=== PATIENT | female | born 1955 | race African-American/Black ===

== ENCOUNTER 2021-08-10 08:36 | Emergency (ER) | payer MEDICAID ==
[~2021-08-10] VITALS: Ht 152.4 cm; Wt 84.0 kg
[2021-08-10] MEDS ORDERED: LABETALOL 5MG/ML SYR 20 MG/4 ML SYRINGE IV ONE (09:00)
[2021-08-10] MEDS ORDERED: LABETALOL 5MG/ML SYR 20 MG/4 ML SYRINGE IV NR (09:15)
[2021-08-10] MEDS ORDERED: ENALAPRIL 2.5MG/2ML VIAL 2ML IV ONE (09:15)
[2021-08-10] MEDS ORDERED: ENALAPRIL 1.25MG/ML VIAL 1ML IV ONE (09:30)
[2021-08-10 10:25] LABS: EOSINOPHILS % 3.3 % (0.0-5.0); HEMATOCRIT. 43.7 % (36.0-48.0); HEMOGLOBIN. 14.9 g/dL (12.0-16.0); MEAN CORPUSCULAR HEMOGLOBIN 28.4 pg (28.0-32.0); MEAN CORPUSCULAR VOLUME 83.1 fL (81.0-99.0); MEAN PLATELET VOLUME 8.7 fl (7.4-10.4); MONOCYTES % 7.3 % (2.0-8.0); NEUTROPHILS % 51.4 % (40.0-76.0); PLATELET 306 x1000/uL (130-400); RED BLOOD CELL COUNT 5.26 mill/uL (4.2-5.4); RED CELL DISTRIBUTION WIDTH 13.8 % (11.6-14.6)
[2021-08-10 10:28] LABS: CHLORIDE 101 mEq/L (98-107)
[2021-08-10 10:32] LABS: PROTHROMBIN TIME 10.3 sec (9.6-11.0)
[2021-08-10] MEDS ORDERED: HYDRALAZINE 20MG/ML VIAL IV ONE (13:30)
[2021-08-10] MEDS ORDERED: HYDRALAZINE 20MG/ML VIAL IV SCH (13:45)
[2021-08-10 13:56] VITALS: BP 176/77
== END 2021-08-10 14:19 ==
LOC: ER 08:36 → CANBEDREQ 23:01
DX: I16.0 Hypertensive urgency (principal); E11.9 Type 2 diabetes mellitus without complications; I49.9 Cardiac arrhythmia, unspecified
CPT/HCPCS: 36415; 70450; 71045; 80053; 82962; 83690; 83880; 84484; 85025; 85610; 93005; 96374; 96375; 99291; J0360; J3490

== ENCOUNTER 2024-06-28 08:23 | Inpatient (IN) | payer MEDICAID, MEDICARE ==
[~2024-06-28] VITALS: Ht 160 cm; Wt 74.1 kg
[~2024-06-28 08:23] MED LIST: AMLO10TA4 PO; CLOT15CR27 TP; HYDR-2988 PO; IBUP-2030 PO; ISOS30TA91 PO; LIP40 PO; LISI40TA13 PO; METO-396 PO; cyclobenzaprine PO
[2024-06-28 09:26] LABS: HEMATOCRIT. 24.7 % (36.0-48.0); HEMOGLOBIN. 7.6 g/dL (12.0-16.0); MEAN CORPUSCULAR HEMOGLOBIN 25.8 pg (28.0-32.0); MEAN CORPUSCULAR HGB CONC 30.9 g/dL (31.0-37.0); MEAN CORPUSCULAR VOLUME 83.5 fL (81.0-99.0); PLATELET 398 x1000/uL (130-400); RED BLOOD CELL COUNT 2.96 mill/uL (4.2-5.4); RED CELL DISTRIBUTION WIDTH 14.6 % (11.6-14.6); WHITE BLOOD COUNT 30.9 x1000/uL (4.5-11.0)
[2024-06-28 09:28] LABS: CHLORIDE 96 mEq/L (98-107); POTASSIUM 4.7 mEq/L (3.5-5.1); SODIUM 127 mEq/L (136-145)
[2024-06-28 09:29] LABS: CALCIUM 8.2 mg/dL (8.7-10.4); CARBON DIOXIDE 12 mEq/L (21-32)
[2024-06-28 09:34] LABS: DIFFERENTIAL COMMENT 1; GLUCOSE 363 mg/dL (70-105); TROPONIN I HIGH SENSITIVITY 9 ng/L (3.0-34); UREA NITROGEN BLOOD 34 mg/dL (9-23)
[2024-06-28] MEDS: AZITHROMYCIN 500MG/250ML 250 ML IV ONE (10:00)
[2024-06-28] MEDS ORDERED: VANCOMYCIN 1G PREMIX 200 ML IV ONE (10:00)
[2024-06-28 10:02] LABS: CREATININE 1.7 mg/dL (0.6-1.0)
[2024-06-28] MEDS: SODIUM CHLORIDE 0.9% (SEPSIS BOLUS) IV ONE (10:29)
[2024-06-28] MEDS: VANCOMYCIN 1,000 MG in SODIUM CHLORIDE 0.9% 250 ML IV NR (11:00)
[2024-06-28 11:02] LABS: PLATELET ESTIMATE NORMAL
[2024-06-28 11:21] LABS: INR 1.3; PROTHROMBIN TIME 14.4 sec (9.6-11.0)
[2024-06-28 11:22] LABS: ALANINE AMINOTRANSFERASE 47 IU/L (10-49); ALBUMIN 2.7 g/dL (3.2-4.8); ASPARTATE AMINOTRANSFERASE 50 IU/L (<34); BILIRUBIN DIRECT 0.4 mg/dL (<=3.0); PROTEIN TOTAL 5.4 g/dL (6.0-8.3)
[2024-06-28 11:32] LABS: LACTIC ACID 10.9 mmol/L (0.4-2.0)
[2024-06-28 14:49] VITALS: BP 150/63; PULSE 107; RESP 18; TEMP 37.00296; O2SAT 98
[2024-06-28] MEDS ORDERED: RIVA20TA MT (15:02)
[2024-06-28] MEDS ORDERED: EMPA25TA MT (15:02)
[2024-06-28 15:45] VITALS: BP 150/63; PULSE 107; RESP 18; TEMP 37.0296
[2024-06-28 16:00] VITALS: BP 123/53; PULSE 110; RESP 18; TEMP 36.114; O2SAT 96
[2024-06-28] MEDS ORDERED: *PATIENT'S OWN MEDICATION STORAGE XX SCH (16:15)
[2024-06-28] MEDS ORDERED: DEXTROSE 50% WATER 50ML SYRINGE IV PRN (16:30)
[2024-06-28] MEDS: BLOOD SUGAR DIAGNOSTIC STRIP TEST SCH (17:34)
[2024-06-28] MEDS: SODIUM CHLORIDE 0.9% 1,000 ML IV SCH (17:36)
[2024-06-28] MEDS: INSULIN LISPRO 100 UNITS/ML SUBCUT SCH (17:40)
[2024-06-28] MEDS ORDERED: CEFTRIAXONE 2GM/50ML 50 ML IV SCH (19:30)
[2024-06-28] MEDS: AZITHROMYCIN 500MG/250ML 250 ML IV SCH (19:30)
[2024-06-28 20:00] VITALS: BP 128/53; PULSE 112; RESP 18; TEMP 36.55848; O2SAT 98
[2024-06-28] MEDS ORDERED: CEFEPIME 2GM IN DEXT 5% 100ML IV SCH (20:00)
[2024-06-28 20:40] LABS: CLARITY URINE CLOUDY (CLEAR); COLOR URINE DARK YELLOW (YELLOW); GLUCOSE URINE 3+ (NEGATIVE); KETONES URINE NEGATIVE (NEGATIVE); LEUKOCYTE ESTERASE URINE 1+ (NEGATIVE); NITRITE URINE NEGATIVE (NEGATIVE); OCCULT BLOOD URINE TRACE (NEGATIVE); PH URINE 5.5 (4.5-8.0); PROTEIN URINE 1+ (NEGATIVE); SPECIFIC GRAVITY URINE 1.019 (1.005-1.030)
[2024-06-28 21:01] LABS: BACTERIA URINE TRACE; COARSE GRANULAR CASTS URINE 0-5 /lpf; RBC URINE 0-2 /hpf (0-2); SQUAMOUS EPITHELIAL CELL URINE FEW /lpf (RARE/1+)
[2024-06-28 22:43] LABS: LACTIC ACID 3.4 mmol/L (0.4-2.0)
[2024-06-29] VITALS (10 sets, daily range): BP systolic 120–151; BP diastolic 50–72; PULSE 74–117; RESP 18–20; TEMP 36.114–39; O2SAT 96–99
[2024-06-29] MEDS ORDERED: PIPERACILLIN/TAZO 3.375G/100ML 100 ML IV SCH (02:00)
[2024-06-29] MEDS: CEFEPIME 2GM/50ML DUPLEX 50 ML IV SCH ×2 (02:51→22:50)
[2024-06-29] MEDS: AZITHROMYCIN 500MG in NS 250ML IV SCH (03:30)
[2024-06-29 07:55] LABS: MEAN CORPUSCULAR HEMOGLOBIN 26.2 pg (28.0-32.0); MEAN CORPUSCULAR HGB CONC 32.5 g/dL (31.0-37.0); MEAN CORPUSCULAR VOLUME 80.6 fL (81.0-99.0); MEAN PLATELET VOLUME 8.3 fl (7.4-10.4); PLATELET 314 x1000/uL (130-400); RED BLOOD CELL COUNT 2.27 mill/uL (4.2-5.4); RED CELL DISTRIBUTION WIDTH 14.3 % (11.6-14.6); WHITE BLOOD COUNT 18.9 x1000/uL (4.5-11.0)
[2024-06-29 09:00] LABS: DIFFERENTIAL COMMENT 1
[2024-06-29 09:02] LABS: HEMOGLOBIN. 5.9 g/dL (12.0-16.0)
[2024-06-29 09:03] LABS: HEMATOCRIT. 18.3 % (36.0-48.0)
[2024-06-29] MEDS: ACETAMINOPHEN 325MG TABLET PO PRN (10:13)
[2024-06-29] MEDS: VANCOMYCIN 750MG PMX (XELLIA) 150 ML IV SCH (11:25)
[2024-06-29] MEDS ORDERED: DIATR MEGLU/DIATRIZOATE SOLN 30ML PO NR (17:15)
[2024-06-29] MEDS ORDERED: CEFEPIME 2GM/50ML DUPLEX 50 ML IV SCH (18:00)
[2024-06-29] MEDS: SODIUM CHLORIDE 0.9% 1,000 ML IV SCH (19:00)
[2024-06-29 19:07] LABS: CHLORIDE 102 mEq/L (98-107); POTASSIUM 3.9 mEq/L (3.5-5.1); SODIUM 130 mEq/L (136-145)
[2024-06-29 19:08] LABS: CARBON DIOXIDE 19 mEq/L (21-32)
[2024-06-29 19:09] LABS: CALCIUM 7.8 mg/dL (8.7-10.4)
[2024-06-29 19:13] LABS: CREATININE 0.9 mg/dL (0.6-1.0); GLUCOSE 212 mg/dL (70-105); UREA NITROGEN BLOOD 22 mg/dL (9-23)
[2024-06-29 20:10] LABS: HYPOCHROMASIA 3+; MICROCYTOSIS 2+; PLATELET ESTIMATE NORMAL
[2024-06-30] VITALS (11 sets, daily range): BP systolic 123–160; BP diastolic 47–72; PULSE 94–108; RESP 18–20; TEMP 36.7–38.7; O2SAT 96–98
[2024-06-30] MEDS: HYDROCODONE/ACETAMINOPHEN 10/325MG TABLET PO PRN (02:29)
[2024-06-30 06:45] LABS: INR 1.1; PROTHROMBIN TIME 11.9 sec (9.6-11.0)
[2024-06-30 06:52] LABS: FOLIC ACID (FOLATE) SERUM 6.22 ng/mL (>5.38)
[2024-06-30 06:53] LABS: FERRITIN 1575 ng/mL (10-291)
[2024-06-30 06:55] LABS: VITAMIN B12 SERUM 295 pg/mL (211-911)
[2024-06-30 07:01] LABS: CARBON DIOXIDE 19 mEq/L (21-32); CHLORIDE 104 mEq/L (98-107); SODIUM 132 mEq/L (136-145)
[2024-06-30 07:02] LABS: CALCIUM 7.7 mg/dL (8.7-10.4)
[2024-06-30 07:04] LABS: HEPATITIS B SURFACE ANTIGEN NEGATIVE (Negative)
[2024-06-30 07:06] LABS: CREATININE 0.7 mg/dL (0.6-1.0); IRON 19 ug/dL (50-170)
[2024-06-30 07:07] LABS: GLUCOSE 167 mg/dL (70-105); TOTAL IRON BINDING CAPACITY 301 ug/dl (250-425); UREA NITROGEN BLOOD 18 mg/dL (9-23)
[2024-06-30 07:08] LABS: ALANINE AMINOTRANSFERASE 40 IU/L (10-49); ALBUMIN 2.6 g/dL (3.2-4.8); PROTEIN TOTAL 5.3 g/dL (6.0-8.3)
[2024-06-30 07:09] LABS: ASPARTATE AMINOTRANSFERASE 59 IU/L (<34); BILIRUBIN DIRECT 0.5 mg/dL (<=3.0); BILIRUBIN TOTAL 1.2 mg/dL (0.1-1.0)
[2024-06-30 07:17] LABS: MEAN CORPUSCULAR HEMOGLOBIN 27.2 pg (28.0-32.0); MEAN CORPUSCULAR HGB CONC 33.8 g/dL (31.0-37.0); MEAN CORPUSCULAR VOLUME 80.6 fL (81.0-99.0); PLATELET 278 x1000/uL (130-400); RED BLOOD CELL COUNT 2.48 mill/uL (4.2-5.4); RED CELL DISTRIBUTION WIDTH 14.6 % (11.6-14.6); WHITE BLOOD COUNT 20.2 x1000/uL (4.5-11.0)
[2024-06-30 07:26] LABS: HEPATITIS A AB IGM NEGATIVE (Negative); HEPATITIS B CORE AB IGM NEGATIVE (Negative)
[2024-06-30 07:27] LABS: HEPATITIS C AB NON REACTIVE (Neg) (Negative)
[2024-06-30 07:52] LABS: DIFFERENTIAL COMMENT 1; HEMOGLOBIN. 6.7 g/dL (12.0-16.0)
[2024-06-30] MEDS ORDERED: VANCOMYCIN 1.25GM PMX (XELLIA) 250 ML IV SCH (10:00)
[2024-06-30] MEDS: VANCOMYCIN 1G PREMIX 200 ML IV SCH (10:00)
[2024-06-30 19:51] LABS: INR 1.1
[2024-06-30 19:53] LABS: HEMATOCRIT. 24.5 % (36.0-48.0); HEMOGLOBIN. 8.4 g/dL (12.0-16.0); MEAN CORPUSCULAR HEMOGLOBIN 27.8 pg (28.0-32.0); MEAN CORPUSCULAR HGB CONC 34.2 g/dL (31.0-37.0); MEAN CORPUSCULAR VOLUME 81.3 fL (81.0-99.0); MEAN PLATELET VOLUME 7.6 fl (7.4-10.4); PLATELET 236 x1000/uL (130-400); RED BLOOD CELL COUNT 3.02 mill/uL (4.2-5.4); RED CELL DISTRIBUTION WIDTH 14.6 % (11.6-14.6); WHITE BLOOD COUNT 26.5 x1000/uL (4.5-11.0)
[2024-06-30 19:54] LABS: DIFFERENTIAL COMMENT 1
[2024-06-30 21:16] LABS: PLATELET ESTIMATE NORMAL
[2024-06-30] MEDS: INSULIN LISPRO 100 UNITS/ML SUBCUT SCH (21:26)
[2024-06-30 23:04] LABS: PLATELET ESTIMATE NORMAL
[2024-07-01] VITALS (7 sets, daily range): BP systolic 133–168; BP diastolic 47–69; PULSE 66–103; RESP 18–20; TEMP 36.3–38.2; O2SAT 97–99
[2024-07-01] MEDS: MEROPENEM 1G/100ML 100 ML IV SCH (01:04)
[2024-07-01 07:31] LABS: HEMATOCRIT. 23.9 % (36.0-48.0); MEAN CORPUSCULAR HEMOGLOBIN 27.3 pg (28.0-32.0); MEAN CORPUSCULAR HGB CONC 33.5 g/dL (31.0-37.0); MEAN CORPUSCULAR VOLUME 81.4 fL (81.0-99.0); PLATELET 220 x1000/uL (130-400); RED BLOOD CELL COUNT 2.94 mill/uL (4.2-5.4); RED CELL DISTRIBUTION WIDTH 14.4 % (11.6-14.6); WHITE BLOOD COUNT 27.9 x1000/uL (4.5-11.0)
[2024-07-01 07:38] LABS: CALCIUM 7.4 mg/dL (8.7-10.4); CHLORIDE 100 mEq/L (98-107); POTASSIUM 3.9 mEq/L (3.5-5.1); SODIUM 130 mEq/L (136-145)
[2024-07-01 07:39] LABS: CARBON DIOXIDE 21 mEq/L (21-32)
[2024-07-01 07:44] LABS: CREATININE 0.6 mg/dL (0.6-1.0)
[2024-07-01 07:45] LABS: GLUCOSE 150 mg/dL (70-105); UREA NITROGEN BLOOD 12 mg/dL (9-23)
[2024-07-01 07:53] LABS: DIFFERENTIAL COMMENT 1
[2024-07-01] MEDS ORDERED: NALOXONE HCL 0.4MG/ML VIAL IV PRN (14:30)
[2024-07-01] MEDS: MEROPENEM 1GM/50ML DUPLEX 50 ML IV SCH (14:47)
[2024-07-01 21:02] LABS: PLATELET ESTIMATE NORMAL
[2024-07-02] VITALS: BP 195/76; PULSE 108; RESP 18; TEMP 36.4; O2SAT 97
[2024-07-02] MEDS: CLONIDINE 0.2MG TABLET PO PRN (02:48)
[2024-07-02] MEDS: AZITHROMYCIN 500MG/250ML 250 ML IV SCH (03:32)
[2024-07-02 04:00] VITALS: BP 160/71; PULSE 103; RESP 17; TEMP 36.1; O2SAT 100
[2024-07-02 06:24] LABS: CHLORIDE 100 mEq/L (98-107); POTASSIUM 4.1 mEq/L (3.5-5.1); SODIUM 128 mEq/L (136-145)
[2024-07-02 06:25] LABS: CALCIUM 7.3 mg/dL (8.7-10.4); CARBON DIOXIDE 20 mEq/L (21-32)
[2024-07-02 06:30] LABS: CREATININE 0.7 mg/dL (0.6-1.0); GLUCOSE 243 mg/dL (70-105); UREA NITROGEN BLOOD 17 mg/dL (9-23)
[2024-07-02 06:34] LABS: HEMATOCRIT. 22.2 % (36.0-48.0); HEMOGLOBIN. 7.7 g/dL (12.0-16.0); MEAN CORPUSCULAR HEMOGLOBIN 28.5 pg (28.0-32.0); MEAN CORPUSCULAR HGB CONC 34.4 g/dL (31.0-37.0); MEAN CORPUSCULAR VOLUME 82.8 fL (81.0-99.0); MEAN PLATELET VOLUME 7.6 fl (7.4-10.4); PLATELET 206 x1000/uL (130-400); RED BLOOD CELL COUNT 2.69 mill/uL (4.2-5.4); WHITE BLOOD COUNT 32.6 x1000/uL (4.5-11.0)
[2024-07-02 06:37] LABS: DIFFERENTIAL COMMENT 1
[2024-07-02 06:38] LABS: INR 1.1; PROTHROMBIN TIME 12.3 sec (9.6-11.0)
[2024-07-02 08:00] VITALS: BP 138/60; PULSE 94; RESP 20; TEMP 36.4; O2SAT 98
[2024-07-02] MEDS: DOCUSATE SODIUM 100MG CAPSULE PO SCH (09:00)
[2024-07-02] MEDS ORDERED: ONDANSETRON HCL 4MG/2ML INJ IV PRN (10:00)
[2024-07-02] MEDS ORDERED: HYDROMORPHONE HCL/PF 2MG/ML INJ IV PRN (10:00)
[2024-07-02] MEDS ORDERED: PHENYLEPHRINE HCL 10MG/ML 1ML IV ONE (10:52)
[2024-07-02] MEDS ORDERED: EPHEDRINE SULFATE 50MG/ML VIAL ONE (10:52)
[2024-07-02] MEDS ORDERED: PROPOFOL 200MG/20ML VIAL IV ONE (10:53)
[2024-07-02 12:24] VITALS: BP 125/87; PULSE 87; RESP 15; TEMP 38.4; O2SAT 97
[2024-07-02] MEDS: DIATR MEGLU/DIATRIZOATE SOLN 30ML PO NR (13:23)
[2024-07-02 16:00] VITALS: BP 110/54; PULSE 86; RESP 15; TEMP 37.4; O2SAT 98
[2024-07-02] MEDS: IOHEXOL-350 100 ML BOTTLE ONE (17:24)
[2024-07-02 20:00] VITALS: BP 147/58; PULSE 95; RESP 17; TEMP 36.4; O2SAT 96
[2024-07-02] MEDS ORDERED: IOHEXOL-300 100 ML BOTTLE ONE (21:44)
[2024-07-02] MEDS: SENNOSIDES 8.6MG TABLET PO SCH (21:47)
[2024-07-03] VITALS: BP 145/59; PULSE 96; RESP 18; TEMP 36.4; O2SAT 97
[2024-07-03 04:00] VITALS: BP 151/62; PULSE 100; RESP 17; TEMP 36.3; O2SAT 96
[2024-07-03 08:00] VITALS: BP 161/70; PULSE 101; RESP 20; TEMP 38.6; O2SAT 96
[2024-07-03 09:17] LABS: HEMATOCRIT. 22.1 % (36.0-48.0); HEMOGLOBIN. 7.3 g/dL (12.0-16.0); MEAN CORPUSCULAR HEMOGLOBIN 27.6 pg (28.0-32.0); MEAN CORPUSCULAR HGB CONC 32.9 g/dL (31.0-37.0); MEAN CORPUSCULAR VOLUME 84.1 fL (81.0-99.0); MEAN PLATELET VOLUME 7.5 fl (7.4-10.4); PLATELET 340 x1000/uL (130-400); RED BLOOD CELL COUNT 2.63 mill/uL (4.2-5.4); RED CELL DISTRIBUTION WIDTH 15.8 % (11.6-14.6); WHITE BLOOD COUNT 34.1 x1000/uL (4.5-11.0)
[2024-07-03 09:21] LABS: CARBON DIOXIDE 24 mEq/L (21-32); CHLORIDE 102 mEq/L (98-107); POTASSIUM 4.3 mEq/L (3.5-5.1); SODIUM 133 mEq/L (136-145)
[2024-07-03 09:23] LABS: CALCIUM 7.5 mg/dL (8.7-10.4)
[2024-07-03 09:27] LABS: CREATININE 0.6 mg/dL (0.6-1.0); GLUCOSE 112 mg/dL (70-105); UREA NITROGEN BLOOD 18 mg/dL (9-23)
[2024-07-03 11:08] LABS: DIFFERENTIAL COMMENT 1
[2024-07-03 12:00] VITALS: BP 161/62; PULSE 97; RESP 22; TEMP 38.4; O2SAT 99
[2024-07-03 16:00] VITALS: BP 156/61; PULSE 107; TEMP 39.1
[2024-07-03 17:14] LABS: ANISOCYTOSIS 1+; HYPOCHROMASIA 1+; PLATELET ESTIMATE NORMAL
[2024-07-03 20:00] VITALS: BP 119/51; PULSE 86; RESP 17; TEMP 36.1; O2SAT 92
[2024-07-04] VITALS (7 sets, daily range): BP systolic 129–187; BP diastolic 61–76; PULSE 86–98; RESP 15–20; TEMP 36.2–38.892; O2SAT 95–98
[2024-07-04 09:24] LABS: CHLORIDE 103 mEq/L (98-107); POTASSIUM 3.6 mEq/L (3.5-5.1); SODIUM 134 mEq/L (136-145)
[2024-07-04 09:25] LABS: CALCIUM 7.1 mg/dL (8.7-10.4); CARBON DIOXIDE 20 mEq/L (21-32)
[2024-07-04 09:30] LABS: CREATININE 0.5 mg/dL (0.6-1.0); GLUCOSE 129 mg/dL (70-105); UREA NITROGEN BLOOD 18 mg/dL (9-23)
[2024-07-04 09:47] LABS: MEAN CORPUSCULAR HEMOGLOBIN 26.9 pg (28.0-32.0); MEAN CORPUSCULAR HGB CONC 32.2 g/dL (31.0-37.0); MEAN CORPUSCULAR VOLUME 83.5 fL (81.0-99.0); MEAN PLATELET VOLUME 7.5 fl (7.4-10.4); PLATELET 378 x1000/uL (130-400); RED BLOOD CELL COUNT 2.48 mill/uL (4.2-5.4); RED CELL DISTRIBUTION WIDTH 15.5 % (11.6-14.6); WHITE BLOOD COUNT 31.1 x1000/uL (4.5-11.0)
[2024-07-04 10:05] LABS: DIFFERENTIAL COMMENT 1
[2024-07-04 10:08] LABS: HEMATOCRIT. 20.7 % (36.0-48.0); HEMOGLOBIN. 6.7 g/dL (12.0-16.0)
[2024-07-04] MEDS: CYANOCOBALAMIN 1000MCG/ML VIAL IM SCH (11:37)
[2024-07-04] MEDS: FERROUS SULFATE 325MG TABLET PO SCH (13:26)
[2024-07-04 16:08] LABS: ANISOCYTOSIS 1+; PLATELET ESTIMATE NORMAL
[2024-07-04 16:09] LABS: HYPOCHROMASIA 1+; MICROCYTOSIS 1+
[2024-07-04 19:49] LABS: ANISOCYTOSIS 1+; HYPOCHROMASIA 1+; PLATELET ESTIMATE NORMAL
[2024-07-05] VITALS (10 sets, daily range): BP systolic 123–197; BP diastolic 61–84; PULSE 75–91; RESP 18–20; TEMP 36.2–38.44752; O2SAT 96–99
[2024-07-05 05:18] LABS: CHLORIDE 101 mEq/L (98-107); SODIUM 130 mEq/L (136-145)
[2024-07-05 05:19] LABS: CARBON DIOXIDE 24 mEq/L (21-32)
[2024-07-05 05:20] LABS: CALCIUM 7.5 mg/dL (8.7-10.4)
[2024-07-05 05:24] LABS: CREATININE 0.6 mg/dL (0.6-1.0); GLUCOSE 173 mg/dL (70-105)
[2024-07-05 05:25] LABS: UREA NITROGEN BLOOD 18 mg/dL (9-23)
[2024-07-05 05:28] LABS: HEMATOCRIT. 26.3 % (36.0-48.0); HEMOGLOBIN. 8.7 g/dL (12.0-16.0); MEAN CORPUSCULAR HEMOGLOBIN 27.5 pg (28.0-32.0); MEAN CORPUSCULAR VOLUME 83.4 fL (81.0-99.0); PLATELET 476 x1000/uL (130-400); RED BLOOD CELL COUNT 3.15 mill/uL (4.2-5.4); RED CELL DISTRIBUTION WIDTH 15.1 % (11.6-14.6)
[2024-07-05 05:35] LABS: DIFFERENTIAL COMMENT 1
[2024-07-05 06:11] LABS: PROTHROMBIN TIME 11.4 sec (9.6-11.0)
[2024-07-05] MEDS ORDERED: IOHEXOL-350 100 ML BOTTLE ONE ×2 (17:17→23:22)
[2024-07-05] MEDS: CEFTRIAXONE 2GM/50ML 50 ML IV SCH (17:40)
[2024-07-05] MEDS: ONDANSETRON HCL 4MG/2ML INJ IV PRN (21:02)
[2024-07-05] MEDS: HYDROCODONE/ACETAMINOPHEN 10/325MG TABLET PO PRN (22:19)
[2024-07-05 22:53] LABS: PLATELET ESTIMATE INCREASED
[2024-07-06] VITALS: BP 162/78; PULSE 77; RESP 19; TEMP 36.1; O2SAT 97
[2024-07-06 04:00] VITALS: BP 145/63; PULSE 89; RESP 19; TEMP 36.4; O2SAT 98
[2024-07-06] MEDS ORDERED: LIDOCAINE HCL 1% 10 MG/ML 10ML VIAL ONE ×3 (07:48→14:03)
[2024-07-06] MEDS ORDERED: LIDOCAINE HCL 1% 20ML VIAL ONE (09:12)
[2024-07-06] MEDS ORDERED: HEPARIN 1000 UNITS/ML 10ML ONE (09:12)
[2024-07-06] MEDS ORDERED: IODIXANOL 320MG/ML 100 ML BOTTLE IV ONE (09:12)
[2024-07-06] MEDS ORDERED: MIDAZOLAM HCL 2 MG/2 ML VIAL ONE ×3 (09:41→11:22)
[2024-07-06] MEDS ORDERED: FENTANYL CITRATE/PF 50MCG/ML 2ML VIAL ONE ×3 (09:42→11:15)
[2024-07-06] MEDS ORDERED: HYDRALAZINE 20MG/ML VIAL ONE (10:29)
[2024-07-06] MEDS ORDERED: LABETALOL 5MG/ML 20ML VIAL IV ONE (10:42)
[2024-07-06] MEDS ORDERED: POLYMYXIN B SULFATE 500000 UNITS/VIAL ONE (10:46)
[2024-07-06] MEDS ORDERED: BUPIVACAINE HCL/PF 0.5% (5MG/ML) 10ML ONE (10:47)
[2024-07-06] MEDS ORDERED: BACITRACIN 14GM TUBE TOP ONE (10:47)
[2024-07-06] MEDS ORDERED: THROMBIN (BOVINE) 5000 UNITS/VIAL TOP ONE (10:47)
[2024-07-06] MEDS ORDERED: HEPARIN SODIUM 1,000 UNIT/1ML VIAL IV ONE (10:47)
[2024-07-06] MEDS ORDERED: ETOMIDATE 2MG/ML 10ML VIAL IV ONE (11:15)
[2024-07-06 11:37] VITALS: BP 148/65; PULSE 89; RESP 20; TEMP 36.4; O2SAT 99
[2024-07-06] MEDS ORDERED: ONDANSETRON HCL 4MG/2ML INJ IV PRN ×2 (12:00→12:15)
[2024-07-06] MEDS ORDERED: MEPERIDINE HCL/PF 25MG/ML CPJ IV PRN ×2 (12:00→12:15)
[2024-07-06] MEDS ORDERED: LABETALOL 5MG/ML 4ML INJ IV PRN ×2 (12:00→12:15)
[2024-07-06] MEDS ORDERED: HYDROMORPHONE HCL/PF 2MG/ML INJ IV PRN (12:15)
[2024-07-06] MEDS: HYDROMORPHONE HCL/PF 1MG/ML INJ IV PRN (13:01)
[2024-07-06 16:00] VITALS: BP 169/69; PULSE 99; RESP 18; TEMP 36.4; O2SAT 96
[2024-07-06 18:59] VITALS: BP 169/69; PULSE 99; RESP 18; TEMP 36.4; O2SAT 96
[2024-07-06 20:00] VITALS: BP 155/61; PULSE 99; RESP 18; TEMP 36.6; O2SAT 99
[2024-07-07] VITALS (9 sets, daily range): BP systolic 115–160; BP diastolic 32–69; PULSE 79–94; RESP 17–20; TEMP 36.2–37.39188; O2SAT 96–100
[2024-07-07 06:58] LABS: MEAN CORPUSCULAR HGB CONC 33.5 g/dL (31.0-37.0); MEAN CORPUSCULAR VOLUME 83.6 fL (81.0-99.0); MEAN PLATELET VOLUME 6.8 fl (7.4-10.4); PLATELET 501 x1000/uL (130-400); RED BLOOD CELL COUNT 2.36 mill/uL (4.2-5.4); RED CELL DISTRIBUTION WIDTH 15.3 % (11.6-14.6); WHITE BLOOD COUNT 24.1 x1000/uL (4.5-11.0)
[2024-07-07 07:05] LABS: CALCIUM 7.1 mg/dL (8.7-10.4); CHLORIDE 103 mEq/L (98-107); POTASSIUM 3.9 mEq/L (3.5-5.1); SODIUM 131 mEq/L (136-145)
[2024-07-07 07:06] LABS: CARBON DIOXIDE 21 mEq/L (21-32)
[2024-07-07 07:11] LABS: CREATININE 0.5 mg/dL (0.6-1.0); GLUCOSE 161 mg/dL (70-105); UREA NITROGEN BLOOD 19 mg/dL (9-23)
[2024-07-07 07:33] LABS: DIFFERENTIAL COMMENT 1
[2024-07-07 07:37] LABS: HEMOGLOBIN. 6.6 g/dL (12.0-16.0)
[2024-07-07 07:38] LABS: HEMATOCRIT. 19.7 % (36.0-48.0)
[2024-07-07 17:20] LABS: PLATELET ESTIMATE NORMAL
[2024-07-07 21:57] LABS: HEMATOCRIT 24.2 % (36.0-48.0)
[2024-07-08] VITALS: BP 178/71; PULSE 88; RESP 19; TEMP 36.7; O2SAT 96
[2024-07-08 04:00] VITALS: BP 183/77; PULSE 88; RESP 18; TEMP 36.1; O2SAT 96
[2024-07-08 06:29] LABS: HEMATOCRIT. 23.8 % (36.0-48.0); HEMOGLOBIN. 8.1 g/dL (12.0-16.0); MEAN CORPUSCULAR HEMOGLOBIN 28.6 pg (28.0-32.0); MEAN CORPUSCULAR VOLUME 84.1 fL (81.0-99.0); MEAN PLATELET VOLUME 7.1 fl (7.4-10.4); PLATELET 560 x1000/uL (130-400); RED BLOOD CELL COUNT 2.83 mill/uL (4.2-5.4); RED CELL DISTRIBUTION WIDTH 15.6 % (11.6-14.6); WHITE BLOOD COUNT 23.8 x1000/uL (4.5-11.0)
[2024-07-08 06:56] LABS: CARBON DIOXIDE 22 mEq/L (21-32); CHLORIDE 101 mEq/L (98-107); DIFFERENTIAL COMMENT 1; POTASSIUM 3.9 mEq/L (3.5-5.1); SODIUM 130 mEq/L (136-145)
[2024-07-08 06:58] LABS: CALCIUM 7.3 mg/dL (8.7-10.4)
[2024-07-08 07:02] LABS: CREATININE 0.4 mg/dL (0.6-1.0); GLUCOSE 121 mg/dL (70-105)
[2024-07-08 07:03] LABS: UREA NITROGEN BLOOD 14 mg/dL (9-23)
[2024-07-08 08:00] VITALS: BP 169/71; PULSE 80; RESP 18; TEMP 37.4; O2SAT 97
[2024-07-08 12:10] VITALS: BP 182/76; PULSE 94; RESP 18; TEMP 37.4; O2SAT 97
[2024-07-08 16:00] VITALS: BP 129/75; PULSE 85; RESP 18; TEMP 37.3; O2SAT 97
[2024-07-08 18:40] LABS: PLATELET ESTIMATE INCREASED
[2024-07-08 20:00] VITALS: BP 189/58; PULSE 90; RESP 19; TEMP 36.7; O2SAT 96
[2024-07-09] VITALS: BP 179/59; PULSE 80; RESP 19; TEMP 36.7; O2SAT 97
[2024-07-09 02:00] VITALS: BP 169/70; PULSE 89; RESP 19; TEMP 37.2; O2SAT 98
[2024-07-09 06:51] LABS: CARBON DIOXIDE 23 mEq/L (21-32); CHLORIDE 102 mEq/L (98-107); POTASSIUM 3.7 mEq/L (3.5-5.1); SODIUM 132 mEq/L (136-145)
[2024-07-09 06:52] LABS: CALCIUM 7.1 mg/dL (8.7-10.4)
[2024-07-09 06:57] LABS: CREATININE 0.4 mg/dL (0.6-1.0); GLUCOSE 187 mg/dL (70-105); UREA NITROGEN BLOOD 12 mg/dL (9-23)
[2024-07-09 07:04] LABS: HEMATOCRIT. 23.2 % (36.0-48.0); HEMOGLOBIN. 7.7 g/dL (12.0-16.0); MEAN CORPUSCULAR HGB CONC 33.2 g/dL (31.0-37.0); MEAN CORPUSCULAR VOLUME 84.4 fL (81.0-99.0); MEAN PLATELET VOLUME 6.8 fl (7.4-10.4); PLATELET 577 x1000/uL (130-400); RED BLOOD CELL COUNT 2.75 mill/uL (4.2-5.4); WHITE BLOOD COUNT 19.6 x1000/uL (4.5-11.0)
[2024-07-09 08:00] VITALS: BP 170/71; PULSE 79; TEMP 37.8; O2SAT 95
[2024-07-09 08:02] LABS: DIFFERENTIAL COMMENT 1
[2024-07-09 12:00] VITALS: BP 163/74; PULSE 85; RESP 18; TEMP 37.7; O2SAT 99
[2024-07-09 16:00] VITALS: BP 189/73; PULSE 89; RESP 20; TEMP 37.7; O2SAT 96
[2024-07-09 20:00] VITALS: BP 132/63; PULSE 72; RESP 18; TEMP 36.7; O2SAT 98
[2024-07-10] VITALS: BP 140/62; PULSE 73; RESP 18; TEMP 36.3; O2SAT 97
[2024-07-10 04:00] VITALS: BP 157/71; PULSE 71; RESP 18; TEMP 36.4; O2SAT 98
[2024-07-10 06:52] LABS: CARBON DIOXIDE 25 mEq/L (21-32); CHLORIDE 100 mEq/L (98-107); POTASSIUM 3.7 mEq/L (3.5-5.1); SODIUM 132 mEq/L (136-145)
[2024-07-10 06:53] LABS: CALCIUM 7.4 mg/dL (8.7-10.4)
[2024-07-10 06:58] LABS: CREATININE 0.5 mg/dL (0.6-1.0); GLUCOSE 138 mg/dL (70-105); UREA NITROGEN BLOOD 11 mg/dL (9-23)
[2024-07-10 08:00] VITALS: BP 158/61; PULSE 76; RESP 20; TEMP 36.7; O2SAT 97
[2024-07-10 08:09] LABS: BASOPHILS % 2.2 % (0.0-2.0); EOSINOPHILS % 1.5 % (0.0-5.0); HEMOGLOBIN. 7.7 g/dL (12.0-16.0); LYMPHOCYTES % 8.6 % (20.0-50.0); MEAN CORPUSCULAR HEMOGLOBIN 27.5 pg (28.0-32.0); MEAN CORPUSCULAR HGB CONC 32.1 g/dL (31.0-37.0); MEAN CORPUSCULAR VOLUME 85.7 fL (81.0-99.0); MEAN PLATELET VOLUME 6.8 fl (7.4-10.4); MONOCYTES % 4.7 % (2.0-8.0); PLATELET 610 x1000/uL (130-400); RED CELL DISTRIBUTION WIDTH 15.5 % (11.6-14.6); WHITE BLOOD COUNT 16.2 x1000/uL (4.5-11.0)
[2024-07-10 12:00] VITALS: BP 156/66; PULSE 85; RESP 20; TEMP 36.4; O2SAT 97
[2024-07-10 16:00] VITALS: BP 129/75; PULSE 99; RESP 20; TEMP 37.4; O2SAT 97
[2024-07-10 19:45] LABS: PLATELET ESTIMATE SLIGHTLY INCREASED
[2024-07-10 20:00] VITALS: BP 208/86; PULSE 105; RESP 16; TEMP 36.8; O2SAT 95
[2024-07-11] VITALS: BP 105/47; PULSE 81; RESP 16; TEMP 36.1; O2SAT 95
[2024-07-11 04:00] VITALS: BP 97/40; PULSE 75; RESP 16; TEMP 36.2; O2SAT 98
[2024-07-11 07:31] LABS: CALCIUM 7.8 mg/dL (8.7-10.4); CARBON DIOXIDE 26 mEq/L (21-32); CHLORIDE 100 mEq/L (98-107); SODIUM 132 mEq/L (136-145)
[2024-07-11 07:37] LABS: CREATININE 0.4 mg/dL (0.6-1.0); GLUCOSE 137 mg/dL (70-105); UREA NITROGEN BLOOD 10 mg/dL (9-23)
[2024-07-11 07:53] LABS: BASOPHILS % 0.8 % (0.0-2.0); EOSINOPHILS % 1.2 % (0.0-5.0); HEMATOCRIT. 23.7 % (36.0-48.0); HEMOGLOBIN. 7.7 g/dL (12.0-16.0); LYMPHOCYTES % 10.3 % (20.0-50.0); MEAN CORPUSCULAR HEMOGLOBIN 27.6 pg (28.0-32.0); MEAN CORPUSCULAR HGB CONC 32.6 g/dL (31.0-37.0); MEAN CORPUSCULAR VOLUME 84.8 fL (81.0-99.0); MEAN PLATELET VOLUME 6.4 fl (7.4-10.4); MONOCYTES % 6.9 % (2.0-8.0); NEUTROPHILS % 80.8 % (40.0-76.0); PLATELET 611 x1000/uL (130-400); RED BLOOD CELL COUNT 2.79 mill/uL (4.2-5.4); RED CELL DISTRIBUTION WIDTH 15.5 % (11.6-14.6); WHITE BLOOD COUNT 16.3 x1000/uL (4.5-11.0)
[2024-07-11 08:00] VITALS: BP 154/64; PULSE 75; RESP 19; TEMP 36.1; O2SAT 100
[2024-07-11 12:00] VITALS: BP 142/48; PULSE 75; RESP 20; TEMP 36.7; O2SAT 100
[2024-07-11 16:00] VITALS: BP 160/60; PULSE 83; RESP 20; TEMP 36.1; O2SAT 95
[2024-07-11 20:00] VITALS: BP 166/69; PULSE 83; RESP 20; TEMP 36.9; O2SAT 97
[2024-07-12] VITALS (10 sets, daily range): BP systolic 133–180; BP diastolic 56–77; PULSE 72–89; RESP 18–20; TEMP 35.9–38; O2SAT 95–98
[2024-07-12 08:14] LABS: HEMATOCRIT. 28.9 % (36.0-48.0); HEMOGLOBIN. 9.8 g/dL (12.0-16.0); MEAN CORPUSCULAR HEMOGLOBIN 28.8 pg (28.0-32.0); MEAN CORPUSCULAR VOLUME 84.7 fL (81.0-99.0); MEAN PLATELET VOLUME 6.6 fl (7.4-10.4); PLATELET 615 x1000/uL (130-400); RED BLOOD CELL COUNT 3.41 mill/uL (4.2-5.4); RED CELL DISTRIBUTION WIDTH 15.4 % (11.6-14.6); WHITE BLOOD COUNT 15.5 x1000/uL (4.5-11.0)
[2024-07-12 09:18] LABS: DIFFERENTIAL COMMENT 1
[2024-07-12 13:47] LABS: ANISOCYTOSIS 1+; PLATELET ESTIMATE INCREASED
[2024-07-13] VITALS: BP 140/59; PULSE 64; RESP 18; TEMP 36.7; O2SAT 98
[2024-07-13 04:00] VITALS: BP 145/59; PULSE 65; RESP 20; TEMP 36.6; O2SAT 98
[2024-07-13 08:00] VITALS: BP 154/68; PULSE 71; RESP 18; TEMP 36.1; O2SAT 97
[2024-07-13 12:00] VITALS: BP 163/88; PULSE 77; RESP 18; TEMP 36.5; O2SAT 98
[2024-07-13 16:00] VITALS: BP 144/67; PULSE 78; RESP 18; TEMP 36.5; O2SAT 97
[2024-07-13 20:00] VITALS: BP 161/63; PULSE 83; RESP 19; TEMP 36.1; O2SAT 96
[2024-07-14] VITALS: BP 160/68; PULSE 69; RESP 20; TEMP 36.7; O2SAT 98
[2024-07-14 04:00] VITALS: BP 138/76; PULSE 90; RESP 19; TEMP 36.6; O2SAT 98
[2024-07-14 06:08] LABS: CHLORIDE 102 mEq/L (98-107); POTASSIUM 3.6 mEq/L (3.5-5.1); SODIUM 135 mEq/L (136-145)
[2024-07-14 06:09] LABS: CALCIUM 8.3 mg/dL (8.7-10.4); CARBON DIOXIDE 26 mEq/L (21-32)
[2024-07-14 06:14] LABS: CREATININE 0.6 mg/dL (0.6-1.0); GLUCOSE 178 mg/dL (70-105)
[2024-07-14 06:15] LABS: UREA NITROGEN BLOOD 10 mg/dL (9-23)
[2024-07-14 07:08] LABS: BASOPHILS % 0.6 % (0.0-2.0); EOSINOPHILS % 1.5 % (0.0-5.0); HEMATOCRIT. 27.9 % (36.0-48.0); HEMOGLOBIN. 9.2 g/dL (12.0-16.0); LYMPHOCYTES % 10.6 % (20.0-50.0); MEAN CORPUSCULAR HEMOGLOBIN 28.1 pg (28.0-32.0); MEAN PLATELET VOLUME 6.9 fl (7.4-10.4); MONOCYTES % 8.3 % (2.0-8.0); PLATELET 558 x1000/uL (130-400); RED BLOOD CELL COUNT 3.29 mill/uL (4.2-5.4); RED CELL DISTRIBUTION WIDTH 15.4 % (11.6-14.6); WHITE BLOOD COUNT 13.7 x1000/uL (4.5-11.0)
[2024-07-14 08:00] VITALS: BP 163/68; PULSE 68; RESP 18; TEMP 36.2; O2SAT 97
[2024-07-14 12:00] VITALS: BP 154/66; PULSE 66; RESP 18; TEMP 38.3; O2SAT 99
[2024-07-14] MEDS: CEFTRIAXONE 2GM/50ML 50 ML IV SCH (14:11)
[2024-07-14 16:00] VITALS: BP 154/69; PULSE 76; RESP 18; TEMP 37.1; O2SAT 98
[2024-07-14] MEDS ORDERED: LIDOCAINE HCL 1% 20ML VIAL ONE (17:47)
[2024-07-14] MEDS ORDERED: BUPIVACAINE HCL/PF 0.5% (5MG/ML) 10ML ONE (17:47)
[2024-07-14] MEDS ORDERED: POLYMYXIN B SULFATE 500000 UNITS/VIAL ONE (17:47)
[2024-07-14] MEDS ORDERED: ONDANSETRON HCL 4MG/2ML INJ IV PRN (18:00)
[2024-07-14] MEDS ORDERED: FENTANYL CITRATE/PF 50MCG/ML 2ML VIAL ONE ×2 (18:00→18:40)
[2024-07-14] MEDS ORDERED: HYDROMORPHONE HCL/PF 1MG/ML INJ IV PRN (18:00)
[2024-07-14] MEDS ORDERED: ROCURONIUM BROMIDE 10MG/ML VIAL 5ML IV ONE (18:00)
[2024-07-14] MEDS ORDERED: PROPOFOL 200MG/20ML VIAL IV ONE (18:00)
[2024-07-14] MEDS ORDERED: ONDANSETRON HCL 4MG/2ML INJ ONE (20:27)
[2024-07-14] MEDS ORDERED: GLYCOPYRROLATE 0.2 MG/ML 2ML VIAL ONE ×2 (20:27)
[2024-07-14] MEDS ORDERED: NEOSTIGMINE METHYLSULFATE 1MG/ML 10 ML VIAL ONE (20:27)
[2024-07-14] MEDS ORDERED: DEXAMETHASONE 4MG/ML 1ML VIAL ONE (20:27)
[2024-07-14] MEDS: HYDRALAZINE 20MG/ML VIAL IV NR (20:54)
[2024-07-15] VITALS: BP 164/69; PULSE 95; RESP 20; TEMP 36.4; O2SAT 97
[2024-07-15 04:00] VITALS: BP 166/68; PULSE 82; RESP 18; TEMP 36.2; O2SAT 98
[2024-07-15 07:06] LABS: HEMATOCRIT. 31.3 % (36.0-48.0); HEMOGLOBIN. 10.2 g/dL (12.0-16.0); MEAN CORPUSCULAR HEMOGLOBIN 27.8 pg (28.0-32.0); MEAN CORPUSCULAR HGB CONC 32.6 g/dL (31.0-37.0); MEAN CORPUSCULAR VOLUME 85.3 fL (81.0-99.0); PLATELET 604 x1000/uL (130-400); RED BLOOD CELL COUNT 3.67 mill/uL (4.2-5.4); WHITE BLOOD COUNT 11.9 x1000/uL (4.5-11.0)
[2024-07-15 07:12] LABS: CHLORIDE 101 mEq/L (98-107); POTASSIUM 4.4 mEq/L (3.5-5.1); SODIUM 133 mEq/L (136-145)
[2024-07-15 07:13] LABS: CALCIUM 8.1 mg/dL (8.7-10.4); CARBON DIOXIDE 24 mEq/L (21-32)
[2024-07-15 07:18] LABS: CREATININE 0.5 mg/dL (0.6-1.0); GLUCOSE 192 mg/dL (70-105); UREA NITROGEN BLOOD 11 mg/dL (9-23)
[2024-07-15 08:00] VITALS: BP 186/77; PULSE 84; RESP 20; TEMP 37.4; O2SAT 99
[2024-07-15 08:09] LABS: DIFFERENTIAL COMMENT 1
[2024-07-15 10:42] LABS: PLATELET ESTIMATE INCREASED
[2024-07-15 12:10] VITALS: BP 176/68; PULSE 86; RESP 20; TEMP 36.9; O2SAT 98
[2024-07-15] MEDS ORDERED: NALOXONE HCL 0.4MG/ML VIAL IV PRN (12:15)
[2024-07-15] MEDS: HYDROCODONE/ACETAMINOPHEN 5/325MG TABLET PO PRN (12:21)
[2024-07-15 16:00] VITALS: BP 130/70; PULSE 85; RESP 20; TEMP 36.7; O2SAT 98
[2024-07-15 20:00] VITALS: BP 183/76; PULSE 90; RESP 18; TEMP 37.3; O2SAT 96
[2024-07-16] VITALS (7 sets, daily range): BP systolic 118–175; BP diastolic 52–76; PULSE 66–87; RESP 17–18; TEMP 36.2–37.7; O2SAT 96–100
[2024-07-16] MEDS: ENOXAPARIN 40MG/0.4ML SYR SUBCUT SCH (14:59)
[2024-07-16] MEDS: MAGNESIUM 2 G PREMIX 50 ML IV SCH (15:00)
[2024-07-16] MEDS: HYDROCORTISONE 1% OINT 28.35GM TOP SCH (21:44)
== END 2024-07-16 23:29 | DRG 853 ==
LOC: ER 08:42 → 8WST 10:11 → EDBEDREQ 10:28 → EDBEDREQTM 10:28
PROVIDERS: ADMIT Internal Medicine; ATTEND Internal Medicine
PROC: 30233N1 Transfusion of Nonautologous Red Blood Cells into Peripheral Vein, Percutaneous Approach (ICD-10-PCS; 2024-06-29)
PROC: 0DB78ZX Excision of Stomach, Pylorus, Via Natural or Artificial Opening Endoscopic, Diagnostic (ICD-10-PCS; 2024-07-02)
PROC: 047L3EZ Dilation of Left Femoral Artery with Two Intraluminal Devices, Percutaneous Approach (ICD-10-PCS; principal; 2024-07-06)
PROC: 04CL3ZZ Extirpation of Matter from Left Femoral Artery, Percutaneous Approach (ICD-10-PCS; 2024-07-06)
PROC: 04CN3ZZ Extirpation of Matter from Left Popliteal Artery, Percutaneous Approach (ICD-10-PCS; 2024-07-06)
PROC: 04CQ3ZZ Extirpation of Matter from Left Anterior Tibial Artery, Percutaneous Approach (ICD-10-PCS; 2024-07-06)
PROC: 047Q3ZZ Dilation of Left Anterior Tibial Artery, Percutaneous Approach (ICD-10-PCS; 2024-07-06)
PROC: 047N3ZZ Dilation of Left Popliteal Artery, Percutaneous Approach (ICD-10-PCS; 2024-07-06)
PROC: 04CN0ZZ Extirpation of Matter from Left Popliteal Artery, Open Approach (ICD-10-PCS; 2024-07-06)
PROC: B41G1ZZ Fluoroscopy of Left Lower Extremity Arteries using Low Osmolar Contrast (ICD-10-PCS; 2024-07-06)
PROC: 0KNT0ZZ Release Left Lower Leg Muscle, Open Approach (ICD-10-PCS; 2024-07-06)
PROC: 0Y6D0Z2 Detachment at Left Upper Leg, Mid, Open Approach (ICD-10-PCS; 2024-07-14)
PROC: 04PY3DZ Removal of Intraluminal Device from Lower Artery, Percutaneous Approach (ICD-10-PCS; 2024-07-14)
DX: A02.1 Salmonella sepsis (principal); N17.0 Acute kidney failure with tubular necrosis; E87.20 Acidosis, unspecified; E87.1 Hypo-osmolality and hyponatremia; N39.0 Urinary tract infection, site not specified; I82.432 Acute embolism and thrombosis of left popliteal vein; T79.A22A Traumatic compartment syndrome of left lower extremity, initial encounter; E11.52 Type 2 diabetes mellitus with diabetic peripheral angiopathy with gangrene; I47.20 Ventricular tachycardia, unspecified; I70.262 Atherosclerosis of native arteries of extremities with gangrene, left leg; I70.92 Chronic total occlusion of artery of the extremities; L02.416 Cutaneous abscess of left lower limb; E11.51 Type 2 diabetes mellitus with diabetic peripheral angiopathy without gangrene; R65.20 Severe sepsis without septic shock; D64.9 Anemia, unspecified; I25.10 Atherosclerotic heart disease of native coronary artery without angina pectoris; G90.89 Other disorders of autonomic nervous system; E88.09 Other disorders of plasma-protein metabolism, not elsewhere classified; K29.70 Gastritis, unspecified, without bleeding; K44.9 Diaphragmatic hernia without obstruction or gangrene; D75.839 Thrombocytosis, unspecified; D50.9 Iron deficiency anemia, unspecified; E78.5 Hyperlipidemia, unspecified; S70.12XA Contusion of left thigh, initial encounter; I10 Essential (primary) hypertension; E80.6 Other disorders of bilirubin metabolism; R29.6 Repeated falls; I25.2 Old myocardial infarction; Z79.01 Long term (current) use of anticoagulants; Z79.84 Long term (current) use of oral hypoglycemic drugs; Z82.49 Family history of ischemic heart disease and other diseases of the circulatory system; Z83.3 Family history of diabetes mellitus; Z86.73 Personal history of transient ischemic attack (TIA), and cerebral infarction without residual deficits; Z89.612 Acquired absence of left leg above knee; Z79.899 Other long term (current) drug therapy; X58.XXXA Exposure to other specified factors, initial encounter; Y93.89 Activity, other specified; Y92.89 Other specified places as the place of occurrence of the external cause; Y99.8 Other external cause status
CPT/HCPCS: 36415; 37227; 37229; 71045; 73562; 74177; 75635; 75710; 76705; 80048; 80076; 80202; 81003; 82270; 82607; 82728; 82746; 82962; 83036; 83540; 83550; 83605; 83735; 83880; 84145; 84484; 85014; 85018; 85025; 85044; 85347; 85384; 86705; 86709; 86850; 86900; 86920; 87015; 87045; 87070; 87075; 87186; 87340; 87426; 87427; 87449; 88300; 88305; 88307; 88311; 88312; 88313; 89055; 93005; 93923; 93970; 97163; 99285; A4606; A6261; C1725; C1769; C1874; C1876; C1887; C1893; C1894; C2623; J0360; J0456; J0665; J0692; J0696; J1100; J1171; J1644; J1650; J1815; J2003; J2185; J2250; J2405; J2704; J2710; J3010; J3370; J3420; J3475; J3490; J7030; J7050; P9016; Q9963; Q9967; C1714